=== PATIENT | female | born 1965 | race Caucasian/White ===

== ENCOUNTER 2016-10-17 12:55 | Emergency (ER) | payer BC ==
[2016-10-17 13:06] VITALS: RESP 20; TEMP 98
[2016-10-17] MEDS ORDERED: RX INFO: IV CONTRAST WAS GIVEN 1 EACH MISC MISCELLANE PRN (13:31)
[2016-10-17] MEDS ORDERED: SODIUM CHLORIDE 0.9% 1,000 ML IV STA (13:31)
[2016-10-17] MEDS ORDERED: HYDROmorphone 1 MG/ML 1 ML SYRINGE IVP STA (13:41)
[2016-10-17] MEDS ORDERED: ONDANSETRON 4 MG/2 ML VIAL IVP STA (13:41)
--- NOTE | 2016-10-17 13:41 | ED ---
GI Bleed HPI - General Chief complaint: GI Bleed Stated complaint: Rectal Bleeding, Dizziness Time Seen by Provider: 10/17/16 13:22 Source: patient, RN notes reviewed Mode of arrival: wheelchair Limitations: no limitations - History of Present Illness Initial comments: This is a 51-year-old female presents emergency Department chief complaint rectal bleeding. Patient states she's having bright red blood with bowel movements over the last 4 days. Patient states she's had multiple episodes daily. Patient states that there is enough blood to fill a toilet. Patient states that she feels very fatigued, dizzy. Patient denies any chest pain or shortness of breath. Patient is concerned as she had a rectocele surgery by Dr. Valdez 5 months ago. Patient patient's. Patient states she has not had a hard stools and has not strained during a bowel movement. Patient states that she's had some nausea and right-sided abdominal pain. Patient has fever, chills. Patient does have a general surgeon Dr. Tashi Mercer. Patient's has never had a colonoscopy. Patient had a prior hysterectomy. - Related Data Home Medications Medication Instructions Recorded Confirmed Calcium Carbonate [Calcium] 600 mg PO DAILY 01/11/16 10/17/16 Cholecalciferol [Vitamin D3] 1,000 unit PO DAILY 01/11/16 10/17/16 Fluticasone Nasal [place] [Flonase 2 spray EA NOSTRIL DAILY PRN 01/11/16 10/17/16 Nasal [place]] Morphine Sulfate [Morphine Sulfate 45 mg PO BID 01/11/16 10/17/16 ER] Multivitamins, Thera [Multivitamin] 1 tab PO DAILY 01/11/16 10/17/16 buPROPion SR [Wellbutrin Sr] 150 mg PO DAILY 01/11/16 10/17/16 Albuterol Inhaler [Ventolin Hfa 2 puff INHALATION RT-Q6H PRN 01/18/16 10/17/16 Inhaler] Dextroamphetamine/Amphetamine 30 mg PO BID 05/26/16 10/17/16 [Adderall] oxyCODONE HCL/ACETAMINOPHEN 1 tab PO Q6HR PRN 05/26/16 10/17/16 [Percocet 10-325 mg] traZODone HCL 300 mg PO HS 05/30/16 10/17/16 Cyclobenzaprine HCl 10 mg PO HS PRN 10/17/16 10/17/16 Gabapentin [Neurontin] 300 mg PO TID 10/17/16 10/17/16 Magnesium Oxide [Mag-Ox] 400 mg PO DAILY 10/17/16 10/17/16 Allergies Allergy/AdvReac Type Severity Reaction Status Date / Time adhesive tape Allergy blsiters, Verified 10/17/16 14:03 skin pulls off hydrocodone bitartrate Allergy Itching Verified 10/17/16 14:03 [From Vicodin] Latex, Natural Rubber Allergy itchy red Verified 10/17/16 14:03 skin meperidine HCl [From Demerol] Allergy Itching,vom Verified 10/17/16 14:03 iting Sulfa (Sulfonamide Allergy Itching Verified 10/17/16 14:03 Antibiotics) Review of Systems ROS Statement: Those systems with pertinent positive or pertinent negative responses have been documented in the HPI. ROS Other: All systems not noted in ROS Statement are negative. Past Medical History Past Medical History: Asthma, Rheumatoid Arthritis (RA) Additional Past Medical History / Comment(s): ankylosing spondylitis History of Any Multi-Drug Resistant Organisms: None Reported Past Surgical History: Section, Hysterectomy Additional Past Surgical History / Comment(s): surgery for ruptured ovarian cyst , lipoma removed from left side of chest, rectocele Past Anesthesia/Blood Transfusion Reactions: Previous Problems w/ Anesthesia Additional Past Anesthesia/Blood Transfusion Reaction / Comment(s): diff waking up after anesthesia Past Psychological History: ADD/ADHD, Depression Smoking Status: Former smoker Past Alcohol Use History: Occasional Additional Past Alcohol Use History / Comment(s): quit smoking 07/2013, smoked for 20 yrs- 3/4 PPD Past Drug Use History: None Reported - Past Family History Mother Family Medical History: No Reported History Father Family Medical History: Cancer General Exam Limitations: no limitations General appearance: alert, in no apparent distress Head exam: Present: atraumatic, normocephalic, normal inspection Respiratory exam: Present: normal lung sounds bilaterally. Absent: respiratory distress, wheezes, rales, rhonchi, stridor Cardiovascular Exam: Present: regular rate, normal rhythm, normal heart sounds. Absent: systolic murmur, diastolic murmur, rubs, gallop, clicks GI/Abdominal exam: Present: soft, tenderness (Moderate right-sided abdominal tenderness), normal bowel sounds. Absent: distended, guarding, rebound, rigid Back exam: Absent: CVA tenderness (R), CVA tenderness (L) Neurological exam: Present: alert, oriented X3, CN II-XII intact Course Vital Signs 10/17/16 10/17/16 10/17/16 13:03 14:06 15:29 Temperature 98.0 F Pulse Rate 102 H 108 H 69 Respiratory 20 20 20 Rate Blood Pressure 128/65 119/58 132/58 O2 Sat by Pulse 98 96 99 Oximetry Medical Decision Making - Medical Decision Making 51-year-old female presented emergency department with chief complaint of abdominal discomfort, rectal bleeding. Patient's hemoglobin within normal limits. Patient is she does feel improved at this time after IV fluids. Patient has no dizziness at this time. Patient has a right-sided 4 mm ureteral calculi causing right-sided abdominal pain. Patient does have some colitis noted on CT. Patient has of ointment with Dr. Horne on . Patient was offered admission at this time though she states that she wants to be discharged follow-up outpatient. Patient was advised to return for any worsening symptoms. Patient advised needs occult Blood. Patient declines at this time. - Lab Data Result diagrams: 10/17/16 14:00 10/17/16 14:00 Lab Results 10/17/16 10/17/16 10/17/16 Range/Units 14:00 14:00 14:00 WBC 10.9 H (3.8-10.6) k/uL RBC 4.49 (3.80-5.40) m/uL Hgb 14.6 (11.4-16.0) gm/dL Hct 44.0 (34.0-46.0) % MCV 98.1 (80.0-100.0) fL MCH 32.6 (25.0-35.0) pg MCHC 33.2 (31.0-37.0) g/dL RDW 12.1 (11.5-15.5) % Plt Count 278 (150-450) k/uL Neutrophils % 67 % Lymphocytes % 25 % Monocytes % 5 % Eosinophils % 1 % Basophils % 1 % Neutrophils # 7.3 (1.3-7.7) k/uL Lymphocytes # 2.7 (1.0-4.8) k/uL Monocytes # 0.5 (0-1.0) k/uL Eosinophils # 0.1 (0-0.7) k/uL Basophils # 0.1 (0-0.2) k/uL PT 10.8 (9.0-12.0) sec INR 1.1 (<1.1) APTT 25.0 (22.0-30.0) sec Sodium 140 (137-145) mmol/L Potassium 4.9 (3.5-5.1) mmol/L Chloride 105 (98-107) mmol/L Carbon Dioxide 26 (22-30) mmol/L Anion Gap 9 mmol/L BUN 17 (7-17) mg/dL Creatinine 0.86 (0.52-1.04) mg/dL Est GFR (MDRD) Af Amer >60 (>60 ml/min/1.73 sqM) Est GFR (MDRD) Non-Af >60 (>60 ml/min/1.73 sqM) Glucose 93 (74-99) mg/dL Calcium 9.4 (8.4-10.2) mg/dL Total Bilirubin 0.5 (0.2-1.3) mg/dL AST 31 (14-36) U/L ALT 26 (9-52) U/L Alkaline Phosphatase 64 (38-126) U/L Total Protein 7.5 (6.3-8.2) g/dL Albumin 4.4 (3.5-5.0) g/dL Lipase 206 (23-300) U/L Blood Type Blood Type Recheck Antibody Screen Spec Expiration Date 10/17/16 Range/Units 14:00 WBC (3.8-10.6) k/uL RBC (3.80-5.40) m/uL Hgb (11.4-16.0) gm/dL Hct (34.0-46.0) % MCV (80.0-100.0) fL MCH (25.0-35.0) pg MCHC (31.0-37.0) g/dL RDW (11.5-15.5) % Plt Count (150-450) k/uL Neutrophils % % Lymphocytes % % Monocytes % % Eosinophils % % Basophils % % Neutrophils # (1.3-7.7) k/uL Lymphocytes # (1.0-4.8) k/uL Monocytes # (0-1.0) k/uL Eosinophils # (0-0.7) k/uL Basophils # (0-0.2) k/uL PT (9.0-12.0) sec INR (<1.1) APTT (22.0-30.0) sec Sodium (137-145) mmol/L Potassium (3.5-5.1) mmol/L Chloride (98-107) mmol/L Carbon Dioxide (22-30) mmol/L Anion Gap mmol/L BUN (7-17) mg/dL Creatinine (0.52-1.04) mg/dL Est GFR (MDRD) Af Amer (>60 ml/min/1.73 sqM) Est GFR (MDRD) Non-Af (>60 ml/min/1.73 sqM) Glucose (74-99) mg/dL Calcium (8.4-10.2) mg/dL Total Bilirubin (0.2-1.3) mg/dL AST (14-36) U/L ALT (9-52) U/L Alkaline Phosphatase (38-126) U/L Total Protein (6.3-8.2) g/dL Albumin (3.5-5.0) g/dL Lipase (23-300) U/L Blood Type A Positive Blood Type Recheck No Antibody Screen NEGATIVE Spec Expiration Date 10/20/20162299 Disposition Clinical Impression: Ureteral calculi, Colitis, Rectal bleeding Disposition: HOME SELF-CARE Condition: Stable Instructions: Gastrointestinal Bleeding (ED) Additional Instructions: Please return to the Emergency Department if symptoms worsen or any other concerns. Referrals: Angie Almaguer DO [Primary Care Provider] - 1-2 days Bonnie Barlow MD [STAFF PHYSICIAN] - 1-2 days Time of Disposition: 15:59
[2016-10-17 14:20] LABS: Basophils # (A) 0.1 k/uL (0-0.2); Basophils % (A) 1 %; CHCM 33.8; Eosinophils # (A) 0.1 k/uL (0-0.7); Eosinophils % (A) 1 %; HDW 2.31; HGB 14.6 gm/dL (11.4-16.0); Luc # (Auto) 0.19; Luc % (Auto) 2; Lymphocytes # (A) 2.7 k/uL (1.0-4.8); Lymphocytes % (A) 25 %; MCH 32.6 pg (25.0-35.0); MCHC 33.2 g/dL (31.0-37.0); MCV 98.1 fL (80.0-100.0); Mean Platelet Volume 7.2; Monocytes # (A) 0.5 k/uL (0-1.0); Monocytes % (A) 5 %; Neutrophils # (A) 7.3 k/uL (1.3-7.7); Neutrophils % (A) 67 %; RBC 4.49 m/uL (3.80-5.40); RDW 12.1 % (11.5-15.5); WBC 10.9 k/uL (3.8-10.6); WBC (Perox) 10.42
[2016-10-17 14:29] LABS: INR 1.1 (<1.1); Prothrombin Time 10.8 sec (9.0-12.0)
[2016-10-17 14:31] LABS: ALT 26 U/L (9-52); AST 31 U/L (14-36); Alkaline Phosphatase 64 U/L (38-126); Anion Gap 9 mmol/L; Blood Urea Nitrogen 17 mg/dL (7-17); Calcium 9.4 mg/dL (8.4-10.2); Carbon Dioxide 26 mmol/L (22-30); Chloride 105 mmol/L (98-107); Glucose 93 mg/dL (74-99); Non-African American GFR(MDRD) >60 (>60 ml/min/1.73 sqM); Potassium 4.9 mmol/L (3.5-5.1); Sodium 140 mmol/L (137-145); Total Bilirubin 0.5 mg/dL (0.2-1.3); Total Protein 7.5 g/dL (6.3-8.2)
--- NOTE | 2016-10-17 15:31 | CT ---
EXAMINATION TYPE: CT abdomen pelvis w con DATE OF EXAM: 10/17/2016 3:17 PM COMPARISON: NONE HISTORY: 51-year-old female with pain. Reports rectal bleeding for 4 days. TECHNIQUE: Contiguous axial scanning of the abdomen and pelvis following administration of 100 ml Omn ipaque 300 IV contrast. Delayed images through the kidneys and coronal/sagittal reconstructions perf ormed. CT DLP: 371.9 mGycm Automated exposure control for dose reduction was used. FINDINGS: Heart is normal size without pericardial effusion. Strandy atelectasis at the posterior lung bases wi thout pleural effusion. Small amount of focal fat along the anterior falciform ligament. Liver is enlarged measuring 19.9 cm craniocaudal. There may be underlying fatty infiltration though the phase of contrast limits assessme nt. Portal venous system is patent but is prominent at 1 cm. Gallbladder, adrenal glands, left kidney, and pancreas show no gross abnormality. There is a prominen t cleft along the mid spleen with apparent varices and a splenorenal shunt. This is of uncertain clin ical significance as the remainder of the portal venous system is not abnormally dilated. There is mild right-sided hydronephrosis and delayed excretion of contrast from the right kidney with a 4 mm calculus in the distal right ureter. No dilated small bowel, free fluid, or free air. No mesenteric or retroperitoneal lymphadenopathy. Normal appendix. Scattered mild stool burden. Mild circumferential wall thickening of the mid to dist al sigmoid colon, for example, on axial image 64 possibly related to nondistention. Phleboliths in the pelvis. Small fat-containing right inguinal hernia. Bladder is partially distended . Uterus surgically absent. There is bulging convexity of the levator ani musculature suggesting mild pelvic floor relaxation. No abnormal fluid collection in the pelvis or pelvic lymphadenopathy seen. Bones: There is a degenerated dextroconvex scoliosis. Bilateral L5 pars defects are present with trac e grade 1 anterolisthesis at L5-S1 and trace grade 1 retrolisthesis at L3-L4 and L4-L5. No osseous de structive process. IMPRESSION: 1. A 4 MM DISTAL RIGHT URETERAL CALCULUS CAUSING OBSTRUCTIVE UROPATHY AND MILD HYDRONEPHROSIS. 2. HEPATOMEGALY. THERE MAY BE UNDERLYING FATTY INFILTRATION OF THE LIVER. CORRELATE WITH LFT's, LIPID PROFILE, AND PATIENT RISK FACTORS. 3. MILD CIRCUMFERENTIAL WALL THICKENING OF THE MID TO DISTAL SIGMOID COLON COULD RELATE TO UNDER DIST ENTION OR COULD REPRESENT A MILD NONSPECIFIC COLITIS. CLINICALLY CORRELATE. 4. MILD PELVIC FLOOR RELAXATION. 5. DEGENERATED DEXTROCONVEX SCOLIOSIS WITH L5 PARS DEFECTS AND GRADE 1 SPONDYLOLISTHESES ABOVE.
[2016-10-17 16:18] VITALS: BP 123/53; PULSE 70
== END 2016-10-17 16:18 | disposition home or self-care (01) ==
LOC: EC 12:55
DX: K92.2 Gastrointestinal hemorrhage, unspecified (principal); N20.1 Calculus of ureter; K52.9 Noninfective gastroenteritis and colitis, unspecified; J45.909 Unspecified asthma, uncomplicated; M06.9 Rheumatoid arthritis, unspecified; F32.9 Major depressive disorder, single episode, unspecified; F90.9 Attention-deficit hyperactivity disorder, unspecified type; Z87.891 Personal history of nicotine dependence; Z79.891 Long term (current) use of opiate analgesic; Z79.899 Other long term (current) drug therapy; Z91.040 Latex allergy status; Z88.2 Allergy status to sulfonamides; Z88.5 Allergy status to narcotic agent; Z91.048 Other nonmedicinal substance allergy status
CPT/HCPCS: 36415; 86900; 86901; 80053; 83690; 85025; 85610; 85730; 86850; 74177; 99285; 96374; 96375; 96361 ×2; J2405; J1170; Q9967

== ENCOUNTER 2018-02-19 23:23 | Emergency (ER) | payer BC ==
[2018-02-19] MEDS ORDERED: AMOXIC-POT CLAV 875MG STARTER 2 EACH TABLET PO STA (23:45)
[2018-02-19] MEDS ORDERED: MORPHINE SULFATE 2 MG/ML SYRINGE IM STA (23:45)
[2018-02-19] MEDS ORDERED: IPRATROPIUM-ALBUTEROL 3 ML NEB INHALATION STA (23:45)
[2018-02-19] MEDS ORDERED: DIPH,PERTUS(ACELL)TETVAC-LF 0.5 ML VIAL IM ONE (23:50)
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
--- NOTE | 2018-02-20 00:33 | XR ---
EXAMINATION TYPE: XR forearm RT DATE OF EXAM: 02/20/2018 COMPARISON: NONE HISTORY: Dog bite TECHNIQUE: 2 views FINDINGS: There is mild soft tissue swelling over the anterior forearm. I see no fracture nor disloca tion. Wrist joint and elbow joint appear intact. IMPRESSION: Soft tissue swelling. No fracture.
[2018-02-20] MEDS ORDERED: MORPHINE SULFATE 2 MG/ML SYRINGE IM STA (01:08)
[2018-02-20] MEDS ORDERED: LIDOCAINE 1% INJ 10MG/ML (20 ML MDV) SQ ONE (01:08)
[2018-02-20 02:02] VITALS: BP 103/55; PULSE 95; RESP 18; TEMP 99
--- NOTE | 2018-02-21 05:00 | CDI ---
Documentation Clarification OP Dear Jayleen HERNANDEZ, [facility] FNPBCM Please do addendum to ED report that describes the length and depth of the repair. Thank you, Patti Vaughn Supervisor [facility] If you have any question, Please contact security project manager at [phone] [facility]
== END 2018-02-20 02:05 | disposition home or self-care (01) ==
LOC: EC 23:23
DX: S51.851A Open bite of right forearm, initial encounter (principal); M06.9 Rheumatoid arthritis, unspecified; J45.909 Unspecified asthma, uncomplicated; F32.9 Major depressive disorder, single episode, unspecified; F90.9 Attention-deficit hyperactivity disorder, unspecified type; F17.200 Nicotine dependence, unspecified, uncomplicated; Z23 Encounter for immunization; Z79.891 Long term (current) use of opiate analgesic; Z79.899 Other long term (current) drug therapy; Z91.040 Latex allergy status; Z88.2 Allergy status to sulfonamides; Z88.5 Allergy status to narcotic agent; Z91.048 Other nonmedicinal substance allergy status; W54.0XXA Bitten by dog, initial encounter
CPT/HCPCS: 99284; 96372 ×2; 90471; 94640; 73090; 90715; J2001; J2270

== ENCOUNTER → 2019-03-25 | Outpatient (CLI) | payer BC ==
--- NOTE | 2019-03-26 08:49 | US ---
EXAMINATION TYPE: US thyroid st tissue head/neck DATE OF EXAM: 03/25/2019 COMPARISON: NONE CLINICAL HISTORY: [id number] DYSPHAGIA. Left neck pain and difficulty swallowing x 8 weeks Left neck submandibular: 1.7 x 0.6 x 1.0cm and 1.5 x 0.6 x 1.8cm hypoechoic area's seen at patient's area of pain, appearing lymph nodes Right neck submandibular for comparison: 1.9 x 0.7 x 1.4cm and 1.9 x 0.6 x 1.1cm lymph nodes IMPRESSION: Overall symmetric appearing bilateral nonenlarged morphologically normal submandibular l ymph nodes. Given the patient's difficulty swallowing enhanced CT Neck or direct visualization could be considered.
== END | disposition home or self-care (01) ==
LOC: RADUSWWP 15:26
PROVIDERS: ATTEND Student in an Organized Health Care Education/Training Program
DX: R13.10 Dysphagia, unspecified (principal)
CPT/HCPCS: 76536

== ENCOUNTER 2020-02-20 22:06 | Emergency (ER) | payer BC ==
[2020-02-20 22:12] VITALS: TEMP 98.7
[2020-02-20] MEDS ORDERED: ALBUTEROL NEBULIZED 2.5 MG/3 ML INHALATION STA (22:21)
--- NOTE | 2020-02-20 22:40 | ED ---
SOB HPI - General Chief Complaint: Shortness of Breath Stated Complaint: PAKO Time Seen by Provider: 02/20/20 22:13 Source: patient, EMS Mode of arrival: EMS Limitations: no limitations - History of Present Illness Initial Comments: 54-year-old female patient presents to the emergency department today for evaluation of sudden onset shortness of breath. States that she was sitting in her bed eating [place] food when she had sudden onset of chest tightness and felt like she couldn't breathe. Patient does have a history of COPD and asthma. States she did do an albuterol treatment at home while waiting for EMS to get there. She did receive an additional breathing treatment in the ambulance as well as 50 mg of oral prednisone. States this did improve her symptoms somewhat. Patient states she was diagnosed with pneumonia 3 weeks ago and did complete prescription of antibiotics. She denies any current fever or chills. Denies chest pain. Denies any lip or tongue swelling. States that she did have the [place] food for dinner last night with no issues or symptoms. Patient denies any recent rash, abdominal pain, nausea, vomiting, diarrhea, constipation, back pain, numbness, tingling, dizziness, weakness, hematuria, dysuria, urinary urgency, urinary frequency, headache, visual changes, or any other complaints. - Related Data Home Medications Medication Instructions Recorded Confirmed Cholecalciferol [Vitamin D3] 2,000 unit PO DAILY 01/11/16 02/20/20 Multivitamins, Thera [Multivitamin] 1 tab PO DAILY 01/11/16 02/20/20 buPROPion SR [Wellbutrin Sr] 150 mg PO DAILY 01/11/16 02/20/20 Dextroamphetamine/Amphetamine 30 mg PO BID 05/26/16 02/20/20 [Adderall] oxyCODONE HCL/ACETAMINOPHEN 1 tab PO Q6HR PRN 05/26/16 02/20/20 [Percocet 10-325 mg] Ipratropium/Albuter 20-100Mcg 1 puff INHALATION RT-TID 02/20/20 02/20/20 [Combivent Respimat 20-100Mcg Inhaler] Montelukast Sodium [Singulair] 10 mg PO DAILY 02/20/20 02/20/20 Morphine Sulfate [Morphine Sulfate 30 mg PO DAILY 02/20/20 02/20/20 ER] Sertraline HCl [Zoloft] 100 mg PO BID 02/20/20 02/20/20 Vitamin B Complex 1 cap PO DAILY 02/20/20 02/20/20 traZODone HCL 300 mg PO HS 02/20/20 02/20/20 Previous Rx's Medication Instructions Recorded predniSONE 50 mg PO DAILY #5 tablet 02/21/20 Allergies Allergy/AdvReac Type Severity Reaction Status Date / Time adhesive tape Allergy blsiters, Verified 02/20/20 23:35 skin pulls off hydrocodone bitartrate Allergy Itching Verified 02/20/20 23:35 [From Vicodin] Latex, Natural Rubber Allergy itchy red Verified 02/20/20 23:35 skin meperidine HCl [From Demerol] Allergy Itching,vom Verified 02/20/20 23:35 iting Sulfa (Sulfonamide Allergy Itching Verified 02/20/20 23:35 Antibiotics) Review of Systems ROS Statement: Those systems with pertinent positive or pertinent negative responses have been documented in the HPI. ROS Other: All systems not noted in ROS Statement are negative. Past Medical History Past Medical History: Asthma, Rheumatoid Arthritis (RA) Additional Past Medical History / Comment(s): ankylosing spondylitis History of Any Multi-Drug Resistant Organisms: None Reported Past Surgical History: Section, Hysterectomy Additional Past Surgical History / Comment(s): surgery for ruptured ovarian cyst, lipoma removed from left side of chest, rectocele Past Anesthesia/Blood Transfusion Reactions: Previous Problems w/ Anesthesia Additional Past Anesthesia/Blood Transfusion Reaction / Comment(s): diff waking up after anesthesia Past Psychological History: ADD/ADHD, Depression Smoking Status: Current every day smoker Past Alcohol Use History: Occasional Past Drug Use History: None Reported - Past Family History Mother Family Medical History: No Reported History Father Family Medical History: Cancer General Exam Limitations: no limitations General appearance: alert, in no apparent distress, other (This is a well- developed, well-nourished adult female patient in no acute distress. Vital signs upon presentation are temperature 98.7F, pulse 104, respirations 24, blood pressure 127/66, pulse ox 92% on room air.) Respiratory exam: Present: wheezes (Expiratory wheezing noted in the posterior lung brantley), other (Tachypnea). Absent: normal lung sounds bilaterally, respiratory distress, rales, rhonchi, stridor Cardiovascular Exam: Present: regular rate, normal rhythm, normal heart sounds. Absent: systolic murmur, diastolic murmur, rubs, gallop, clicks GI/Abdominal exam: Present: soft, normal bowel sounds. Absent: distended, te nderness, guarding, rebound, rigid Neurological exam: Present: alert, oriented X3, CN II-XII intact Psychiatric exam: Present: normal affect, normal mood Skin exam: Present: warm, dry, intact, normal color. Absent: rash Course Vital Signs 02/20/20 02/20/20 02/20/20 22:07 22:14 23:13 Temperature 98.7 F Pulse Rate 104 H 99 Respiratory 24 24 Rate Blood Pressure 127/66 O2 Sat by Pulse 92 L Oximetry 02/20/20 02/20/20 02/20/20 23:22 23:26 23:30 Temperature Pulse Rate 95 101 H 105 H Respiratory 20 20 Rate Blood Pressure 107/64 100/56 O2 Sat by Pulse 95 95 Oximetry 02/21/20 02/21/20 00:00 00:52 Temperature Pulse Rate 101 H 92 Respiratory 20 20 Rate Blood Pressure 108/56 114/58 O2 Sat by Pulse 95 96 Oximetry Medical Decision Making - Medical Decision Making 54-year-old female patient presents to the emergency department today for evaluation of shortness of breath. Physical examination did reveal diffuse expiratory wheezing in the posterior lung brantley. Patient underwent chest x-ray which showed COPD but was otherwise negative. Labs reviewed and did reveal elevated d-dimer 0.7. Patient did have CT angiography of the chest which showed no evidence for PE but did redemonstrate COPD with some emphysematous changes. EKG showed sinus tachycardia with no ST elevation or depression. Patient is afebrile. Upon reevaluation she does report improvement of symptoms. She does feel comfortable being discharged home. We will do a course of steroids for her she is instructed to her breathing treatments every 4 hours. She is instructed to follow-up with her primary care physician for recheck in 1-2 days. Return parameters were discussed in detail. She verbalizes understanding and agrees with this plan. - Lab Data Result diagrams: 02/20/20 22:29 02/20/20 22:29 Lab Results 02/20/20 02/20/20 02/20/20 Range/Units 22:29 22:29 22:29 WBC 8.5 (3.8-10.6) k/uL RBC 4.55 (3.80-5.40) m/uL Hgb 14.1 (11.4-16.0) gm/dL Hct 43.5 (34.0-46.0) % MCV 95.7 (80.0-100.0) fL MCH 31.0 (25.0-35.0) pg MCHC 32.4 (31.0-37.0) g/dL RDW 13.4 (11.5-15.5) % Plt Count 322 (150-450) k/uL Neutrophils % 62 % Lymphocytes % 29 % Monocytes % 5 % Eosinophils % 2 % Basophils % 0 % Neutrophils # 5.3 (1.3-7.7) k/uL Lymphocytes # 2.5 (1.0-4.8) k/uL Monocytes # 0.4 (0-1.0) k/uL Eosinophils # 0.2 (0-0.7) k/uL Basophils # 0.0 (0-0.2) k/uL PT 9.9 (9.0-12.0) sec INR 0.9 (<1.2) APTT 22.4 (22.0-30.0) sec D-Dimer 0.72 H (<0.60) mg/L FEU Sodium 139 (137-145) mmol/L Potassium 3.9 (3.5-5.1) mmol/L Chloride 105 (98-107) mmol/L Carbon Dioxide 27 (22-30) mmol/L Anion Gap 7 mmol/L BUN 16 (7-17) mg/dL Creatinine 1.06 H (0.52-1.04) mg/dL Est GFR (CKD-EPI)AfAm 70 (>60 ml/min/1.73 sqM) Est GFR (CKD-EPI)NonAf 60 (>60 ml/min/1.73 sqM) Glucose 107 H (74-99) mg/dL Plasma Lactic Acid Usman (0.7-2.0) mmol/L Calcium 9.8 (8.4-10.2) mg/dL Magnesium 1.9 (1.6-2.3) mg/dL Total Bilirubin 0.2 (0.2-1.3) mg/dL AST 28 (14-36) U/L ALT 19 (4-34) U/L Alkaline Phosphatase 68 (38-126) U/L Troponin I (0.000-0.034) ng/mL Total Protein 7.0 (6.3-8.2) g/dL Albumin 4.4 (3.5-5.0) g/dL 02/20/20 02/20/20 Range/Units 22:29 22:29 WBC (3.8-10.6) k/uL RBC (3.80-5.40) m/uL Hgb (11.4-16.0) gm/dL Hct (34.0-46.0) % MCV (80.0-100.0) fL MCH (25.0-35.0) pg MCHC (31.0-37.0) g/dL RDW (11.5-15.5) % Plt Count (150-450) k/uL Neutrophils % % Lymphocytes % % Monocytes % % Eosinophils % % Basophils % % Neutrophils # (1.3-7.7) k/uL Lymphocytes # (1.0-4.8) k/uL Monocytes # (0-1.0) k/uL Eosinophils # (0-0.7) k/uL Basophils # (0-0.2) k/uL PT (9.0-12.0) sec INR (<1.2) APTT (22.0-30.0) sec D-Dimer (<0.60) mg/L FEU Sodium (137-145) mmol/L Potassium (3.5-5.1) mmol/L Chloride (98-107) mmol/L Carbon Dioxide (22-30) mmol/L Anion Gap mmol/L BUN (7-17) mg/dL Creatinine (0.52-1.04) mg/dL Est GFR (CKD-EPI)AfAm (>60 ml/min/1.73 sqM) Est GFR (CKD-EPI)NonAf (>60 ml/min/1.73 sqM) Glucose (74-99) mg/dL Plasma Lactic Acid Usman 1.0 (0.7-2.0) mmol/L Calcium (8.4-10.2) mg/dL Magnesium (1.6-2.3) mg/dL Total Bilirubin (0.2-1.3) mg/dL AST (14-36) U/L ALT (4-34) U/L Alkaline Phosphatase (38-126) U/L Troponin I <0.012 (0.000-0.034) ng/mL Total Protein (6.3-8.2) g/dL Albumin (3.5-5.0) g/dL - EKG Data -: EKG Interpreted by Me EKG Comments: EKG obtained at 2213 shows sinus tachycardia with a ventricular rate of 105, DE interval 132, QR mormonism 80, QT 336, QTc 444. No evidence of ST elevation or depression. - Radiology Data Radiology results: report reviewed, image reviewed Two-view x-ray of the chest is obtained. Report was reviewed in its entirety. Impression by Dr. Couch shows COPD. No active cardiopulmonary disease. No change. CT chest angiography for pulmonary embolism is obtained. Report was reviewed in its entirety. Impression by Dr. Couch shows no evidence of pulmonary embolus him. To some mild pulmonary emphysema that appears new compared to old exam. Disposition Clinical Impression: Asthma exacerbation Disposition: HOME SELF-CARE Condition: Good Instructions (If sedation given, give patient instructions): Asthma (ED) Additional Instructions: Follow up with your primary care physician for recheck in 1-2 days. 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 Complete steroid prescription in full. Do breathing treatments every 4 hours. Return to the emergency department immediately for any new, worsening, or concerning symptoms. Prescriptions: predniSONE 50 mg PO DAILY #5 tablet Is patient prescribed a controlled substance at d/c from ED?: No Referrals: Angie Almaguer DO [Primary Care Provider] - 1-2 days Time of Disposition: 00:48
--- NOTE | 2020-02-20 22:40 | XR ---
EXAMINATION TYPE: XR chest 2V DATE OF EXAM: 02/20/2020 COMPARISON: 04/10/2011 HISTORY: Short of breath TECHNIQUE: FINDINGS: Heart and mediastinum are normal. Lungs are clear of infiltrate. There is flattening of the diaphragm. There are no hilar masses. Bony thorax is intact. IMPRESSION: COPD. No active cardiopulmonary disease. No change.
[2020-02-20 22:48] LABS: Basophils % (A) 0 %; Eosinophils # (A) 0.2 k/uL (0-0.7); Eosinophils % (A) 2 %; HCT 43.5 % (34.0-46.0); HGB 14.1 gm/dL (11.4-16.0); Lymphocytes # (A) 2.5 k/uL (1.0-4.8); Lymphocytes % (A) 29 %; MCHC 32.4 g/dL (31.0-37.0); MCV 95.7 fL (80.0-100.0); Mean Platelet Volume 6.6; Monocytes # (A) 0.4 k/uL (0-1.0); Monocytes % (A) 5 %; Neutrophils # (A) 5.3 k/uL (1.3-7.7); Neutrophils % (A) 62 %; Platelet Count 322 k/uL (150-450); RBC 4.55 m/uL (3.80-5.40); RDW 13.4 % (11.5-15.5); WBC 8.5 k/uL (3.8-10.6)
[2020-02-20 22:58] LABS: Albumin 4.4 g/dL (3.5-5.0); Calcium 9.8 mg/dL (8.4-10.2); Magnesium 1.9 mg/dL (1.6-2.3); Potassium 3.9 mmol/L (3.5-5.1); Total Bilirubin 0.2 mg/dL (0.2-1.3)
[2020-02-20 22:59] LABS: INR 0.9 (<1.2); Partial Thromboplastin Time 22.4 sec (22.0-30.0); Prothrombin Time 9.9 sec (9.0-12.0)
[2020-02-20 23:02] LABS: D-Dimer 0.72 mg/L FEU (<0.60)
[2020-02-20 23:27] VITALS: RESP 20
--- NOTE | 2020-02-21 00:16 | CT ---
EXAMINATION TYPE: CT chest angio for PE DATE OF EXAM: 02/20/2020 COMPARISON: 04/12/2011 HISTORY: pe CT DLP: 246.60 mGycm Automated exposure control for dose reduction was used. CONTRAST: Performed with IV Contrast, patient injected with 60 mL of Isovue 370. There are 3-D post processed images. The lungs are clear of consolidation. There is minimal subsegmental atelectasis at the posterior lung bases. Heart size is normal. There is no pericardial effusion. There is no mediastinal adenopathy. T here is mild pulmonary emphysema. There are no hilar masses. Thoracic aorta is intact. There is no an eurysm or dissection. There are no hilar masses. There is normal contrast opacification of the pulmonary arteries. I see no filling defects. Upper abd ominal soft tissues are intact. The bony thorax is intact. IMPRESSION: No evidence of pulmonary embolism. There is some mild pulmonary emphysema that appears new compared t o old exam.
[2020-02-21 00:58] VITALS: BP 114/58; PULSE 92
== END 2020-02-21 01:00 | disposition home or self-care (01) ==
LOC: EC 22:06
DX: J45.901 Unspecified asthma with (acute) exacerbation (principal); R00.0 Tachycardia, unspecified; F90.9 Attention-deficit hyperactivity disorder, unspecified type; F32.9 Major depressive disorder, single episode, unspecified; F17.200 Nicotine dependence, unspecified, uncomplicated; Z79.51 Long term (current) use of inhaled steroids; Z79.899 Other long term (current) drug therapy; Z91.040 Latex allergy status; Z91.048 Other nonmedicinal substance allergy status; Z88.5 Allergy status to narcotic agent; Z88.6 Allergy status to analgesic agent; Z88.2 Allergy status to sulfonamides
CPT/HCPCS: 36415; 94640; 93005; 85379; 80053; 83605; 83735; 84484; 85025; 85610; 85730; 87040; 71046; 71275; 99285; Q9967

== ENCOUNTER → 2022-01-28 | Outpatient (CLI) | payer BC ==
[2022-01-28 16:10] LABS: Basophils # (A) 0.03 X 10*3/uL (0.00-0.10); Basophils % (A) 0.3 %; Eosinophils # (A) 0.04 X 10*3/uL (0.04-0.35); Eosinophils % (A) 0.4 %; HCT 44.5 % (37.2-46.3); HGB 14.5 g/dL (12.0-15.0); Immature Grans, Automated 0.1 %; Lymphocytes # (A) 1.37 X 10*3/uL (0.90-5.00); Lymphocytes % (A) 14.5 %; MCH 31.4 pg (27.0-32.0); MCHC 32.6 g/dL (32.0-37.0); MCV 96.3 fL (80.0-97.0); Mean Platelet Volume 9.5 fL (9.5-12.2); Monocytes # (A) 0.68 X 10*3/uL (0.20-1.00); Monocytes % (A) 7.2 %; NRBC Per 100 WBC 0 /100 WBCS (0.0-0.0); Neutrophils # (A) 7.33 X 10*3/uL (1.80-7.70); Neutrophils % (A) 77.5 %; Platelet Count 249 X 10*3/uL (140-440); RBC 4.62 X 10*6/uL (4.10-5.20); RDW 12.4 % (11.5-14.5); WBC 9.46 X 10*3/uL (4.50-10.00)
[2022-01-28 16:26] LABS: African American GFR (CKD) 79.8 (60.0-200.0); Albumin 4.7 g/dL (3.8-4.9); Albumin/Globulin Ratio 2.07 (1.60-3.17); Anion Gap 10.6 mmol/L (10.00-18.00); BUN/Creat Ratio 13.06 Ratio (12.00-20.00); Blood Urea Nitrogen 12.2 mg/dL (9.0-27.0); Carbon Dioxide 27.1 mmol/L (20.0-27.5); Globulin 2.3 g/dL (1.6-3.3); Non-African American GFR(CKD) 68.8 (60.0-200.0); Potassium 4.4 mmol/L (3.5-5.5); Total Bilirubin 0.3 mg/dL (0.30-1.20)
--- NOTE | 2022-01-28 23:40 | XR ---
EXAMINATION TYPE: XR Hip RT and AP Pelvis DATE OF EXAM: 01/28/2022 COMPARISON: NONE HISTORY: Pain TECHNIQUE: 3 views FINDINGS: Pelvic ring is intact. Proximal right femur and hip joint appear intact. Sacroiliac joints are intact. IMPRESSION: Negative pelvis and right hip exam
== END | disposition home or self-care (01) ==
LOC: LABWHC1 10:50
PROVIDERS: ATTEND Student in an Organized Health Care Education/Training Program
DX: A09 Infectious gastroenteritis and colitis, unspecified (principal); A02.9 Salmonella infection, unspecified; E86.0 Dehydration; M25.551 Pain in right hip
CPT/HCPCS: 36415; 73502; 80053; 85025

== ENCOUNTER → 2023-05-30 | Outpatient (CLI) | payer BC ==
--- NOTE | 2023-05-30 16:46 | MR ---
EXAMINATION TYPE: MR ankle RT wo con DATE OF EXAM: 05/30/2023 COMPARISON: No radiographic correlation available HISTORY: 58-year-old female S86.001A, Right ankle pain and swelling, injury to Achilles tendon TECHNIQUE: Multiplanar, multisequence images of the right ankle were obtained without IV contrast. FINDINGS: There is severe diffuse thickening of the Achilles tendon with a rupture along the proximal third por tion just below the myotendinous junction. The distal stump is located 4 cm above the calcaneal inser tion. There is an intervening gap of approximately 4 cm to the disorganized proximal stump. Associated fluid and hemorrhagic debris. The tibiotalar and subtalar joints are intact. Small to moderate effusion posterior subtalar joint. There is some edematous change along the joint capsule of the dorsal talonavicular joint suggesting a mild joint sprain. No acute or healing fracture is seen. There is severe thickening and suspected split tear along the length of the visualized posterior tibi al tendon. The lateral peroneal tendons as well as the lateral ligamentous complex appears intact. Anterior extensor tendons as well as the syndesmosis appear intact. Lisfranc ligament visualized intact. IMPRESSION: 1. Severe Achilles tendinosis with a rupture along the proximal third portion just below the myotendi nous junction. The distal stump is located 4 cm above the calcaneal insertion. There is an intervenin g gap of approximately 4 cm to the disorganized proximal stump. Associated hemorrhagic fluid and debr is. 2. Correlate for a capsular sprain of the dorsal talonavicular joint. 3. Severe posterior tibial tendinosis with a long segment split tear.
== END | disposition home or self-care (01) ==
LOC: RADMRIMAIN 15:43
PROVIDERS: ATTEND Podiatrist Foot & Ankle Surgery
DX: S86.001A Unspecified injury of right Achilles tendon, initial encounter (principal); M67.873 Other specified disorders of tendon, right ankle and foot; X58.XXXA Exposure to other specified factors, initial encounter

== ENCOUNTER → 2024-11-19 | Outpatient (CLI) | payer BC ==
--- NOTE | 2024-11-20 13:51 | MM ---
Reason for Exam: Screening (asymptomatic). Last mammogram was performed 10 year(s) and 3 month(s) ago. Patient History: Menarche at age 14. First Full-Term at age 21. Hysterectomy at age 30. 2005, Excisional Biopsy on the Right side. 09/16/2014, Benign Core Biopsy on the right side. 09/16/2014, Benign Cyst Aspiration on the left side. 09/16/2014, Benign Cyst Aspiration on the right side. Maternal cousin had breast cancer, age 45. Risk Values: Hannah 5 year model risk: 1.8%. NCI Lifetime model risk: 10.2%. Prior Study Comparison: 03/30/2011 Bilateral Diagnostic Mammogram, [facility]. 09/01/2014 Bilateral Diagnostic Mammogram, [facility]. 09/16/2014 Bilateral Diagnostic Mammogram, [facility]. Tissue Density: The breasts are extremely dense, which lowers the sensitivity of mammography. Findings: Analyzed By CAD. There is no suspicious group of microcalcifications or new suspicious mass in either breast. Overall Assessment: Benign, BI-RAD 2 Management: Screening Mammogram of both breasts in 1 year. . Patient should continue monthly self-breast exams. A clinical breast exam by your physician is recommended on an annual basis. This exam should not preclude additional follow-up of suspicious palpable abnormalities. Note on Hannah scores and lifetime risk: 1. A Hannah score greater than 3% is considered moderate risk. If this is the case, consider specialist referral to assess eligibility for a risk reducing agent. 2. If overall lifetime risk for the development of breast cancer is 20% or higher, the patient may qualify for future screening with alternating mammogram and breast MRI. [facility], , 11/19/2024 12:57 PM. Electronically signed and approved by: Jey Pedro M.D. Radiologis
== END | disposition home or self-care (01) ==
LOC: RADMAMWWP 12:19
PROVIDERS: ATTEND Obstetrics & Gynecology
DX: Z12.31 Encounter for screening mammogram for malignant neoplasm of breast (principal); R92.343 Mammographic extreme density, bilateral breasts; Z80.3 Family history of malignant neoplasm of breast
CPT/HCPCS: 77067